=== PATIENT | female | born 1995 | race Caucasian/White ===

== ENCOUNTER 2019-06-05 10:37 | Emergency (ER) | payer OTHER ==
[~2019-06-05] VITALS: Ht 162.6 cm; Wt 83.0 kg
[~2019-06-05 10:37] MED LIST: AMOXICILLIN500 M1 PO; BACTRIM DS TAB1 EACH PO; CIPROFLOXACIN500 M1 PO; FLAGYL500 MG PO; HYDROCODON-ACE1 EAC7 PO; IBUPROFEN 800800 MG PO; KEFLEX500 MG PO; NAPROSYN375 MG PO; NOHOMEMEDICATIONS; NORCO 5-325 TA1 EACH PO; ONDANSETRON HCL4 M2 PO; PHENERGAN 25 MG25 M1 PO; ROBAXIN500 MG PO; TRAMADOL 50 MG50 MG PO
[2019-06-05 10:47] VITALS: BP 152/85
[2019-06-05 11:04] LABS: URINE BILIRUBIN NEGATIVE (Negative); URINE BLOOD 3+ (Negative); URINE CLARITY CLEAR; URINE COLOR RED; URINE GLUCOSE-RANDOM NEGATIVE (Negative); URINE KETONES NEGATIVE (Negative); URINE LEUKOCYTES-REFLEX TRACE (Negative); URINE NITRITE-REFLEX NEGATIVE (Negative); URINE PROTEIN 1+ (Negative); URINE SPECIFIC GRAVITY <= 1.005 (1.005-1.030); URINE UROBILINOGEN 0.2 E.U./dl (0.2-1.0)
[2019-06-05 11:05] LABS: CASTS None Seen /LPF (None Seen); MUCUS 0-3 Light strn/LPF (None Seen); SQUAMOUS 4-10 Moderate /LPF (0-3); URINE RBC >20 Many /HPF (0-2)
[2019-06-05 11:06] LABS: CRYSTALS None Seen /LPF (None Seen)
== END 2019-06-05 11:16 | disposition home or self-care (01) ==
LOC: M.ERS 10:37
PROVIDERS: Family Medicine
DX: N93.9 Abnormal uterine and vaginal bleeding, unspecified (principal); Z88.5 Allergy status to narcotic agent